=== PATIENT | male | born 1985 | race Caucasian/White ===

== ENCOUNTER 2019-06-25 05:16 | Emergency (ER) | payer SELFPAY ==
[2019-06-25] MEDS ORDERED: predniSONE 20 MG Tab PO ONE (06:00)
--- NOTE | 2019-06-25 06:04 | EDM.PDOC ---
ED HPI GENERAL MEDICAL PROBLEM - General Chief Complaint: Skin Complaint Stated Complaint: RASH Time Seen by Provider: 06/25/19 05:48 Source of Information: Reports: Patient History Limitations: Reports: No Limitations - History of Present Illness INITIAL COMMENTS - FREE TEXT/NARRATIVE: 83-year-old male presents to the ED with diffuse urticaria across his lower abdomen and patches of erythema and scattered urticaria upper arms back and inner thighs. He states he woke with the symptoms yesterday morning. Patient has been on a 3-week fast and has lost around 38 pounds of weight. He is currently taking broth as a supplement and occasional Powerade. Making sure that he gets adequate fluid intake. Smells of ketones on his breath. He has not been ill with any viral infections. He has not been taking any herbal supplements and has taken only yogurt in the last day or 2 with broth. He has some Campos type Powerade which does contain red food dyes which may or may not be the culprit. He has not eaten any nuts. The source of his urticaria remains unclear at this time. Has been taking Benadryl but awoke during the night with severe itching and decided to come to the hospital. He has no sore throat no throat closure and no trouble breathing. Onset: Sudden Onset Date: 06/24/19 (Awoke with urticaria yesterday morning.) Duration: Day(s):, Getting Worse Location: Reports: Generalized Quality: Reports: Other Severity: Severe (Ear pruritus) Improves with: Reports: None Worsens with: Reports: None Context: Reports: Other (Spontaneous occurrence). Denies: Activity, Exercise, Lifting, Sick Contact, Trauma Associated Symptoms: Reports: No Other Symptoms Treatments SCIENTIFIC LINGUIST: Reports: Other (see below) - Related Data Allergies Allergy/AdvReac Type Severity Reaction Status Date / Time No Known Allergies Allergy Verified 06/25/19 05:32 Home Meds: Home Meds predniSONE [Prednisone] 20 mg PO BID #10 tablet 06/25/19 [Rx] Past Medical History - History Comment History Comment: Patient is currently fasting for the last 3 weeks and is volume depleted clinically and ketotic. I cannot be sure that his ketotic state is not contributing to mast cell breakdown in his skin due to weight loss making them much closer to the surface than normal. Also adipose tissue loss may or may not be contributing to development of urticaria. Social & Family History - Living Situation & Occupation Living situation: Reports: Single Occupation: Employed ED ROS GENERAL - Review of Systems Review Of Systems: See Below Constitutional: Reports: Malaise, Fatigue (Not sleeping well due to severe pruritus from the hives). Denies: Fever, Chills HEENT: Reports: No Symptoms Respiratory: Reports: No Symptoms Cardiovascular: Reports: No Symptoms Endocrine: Reports: Fatigue GI/Abdominal: Reports: No Symptoms : Reports: No Symptoms Musculoskeletal: Reports: No Symptoms Skin: Reports: Urticaria (Opened up urticaria generalized but mostly across his abdominal wall) Neurological: Reports: No Symptoms Psychiatric: Reports: No Symptoms Hematologic/Lymphatic: Reports: No Symptoms Immunologic: Reports: No Symptoms ED EXAM, SKIN/RASH Exam: See Below Exam Limited By: No Limitations General Appearance: Alert, WD/WN, Mild Distress Eye Exam: Bilateral Eye: Normal Inspection (There is no periorbital swelling.), PERRL Throat/Mouth: Normal Inspection, Normal Lips, Normal Oropharynx, No Airway Compromise, Other (Uvula and floor the mouth are normal.) Head: Atraumatic, Normocephalic Neck: Normal Inspection, Supple, Non-Tender, Full Range of Motion Respiratory/Chest: No Respiratory Distress, Lungs Clear, Normal Breath Sounds, No Accessory Muscle Use. No: Crackles, Rales, Rhonchi, Wheezing Cardiovascular: Normal Peripheral Pulses, Regular Rate, Rhythm, No Edema, No Gallop, No Murmur, No Rub GI/Abdominal: Normal Bowel Sounds, Soft, Non-Tender, No Organomegaly Extremities: Normal Inspection, Normal Range of Motion, Non-Tender. No: Pedal Edema Neurological: Alert, Oriented, CN II-XII Intact, Normal Cognition, Normal Gait Psychiatric: Normal Affect, Normal Mood Skin: Warm, Dry, Intact, Normal Color, Rash (Tanner rash particularly across his lower abdominal wall blood patches on his upper back inner thighs that are evident as well.), Other (His patches of dry skin from weight loss.) Location, Skin: Generalized Characteristics: Urticarial Course - Vital Signs Last Recorded V/S: Last Vital Signs Temp 36.1 C 06/25/19 05:32 Pulse 85 06/25/19 05:32 Resp 19 06/25/19 05:32 BP 138/89 06/25/19 05:32 Pulse Ox 100 06/25/19 05:32 - Orders/Labs/Meds Meds: Medications Discontinued Medications Generic Name Dose Route Start Last Admin Trade Name Lori PRPaola Reason Stop Dose Admin Prednisone 30 mg 06/25/19 06:00 Prednisone PO 06/25/19 06:01 ONETIME ONE - Radiology Interpretation Free Text/Narrative:: 33-year-old male presents to the ED with acute onset of hives developing yesterday morning upon awakening. It is unclear at this time what the source of his hives are. It is unusual that the patient is fasting and is taking very little carbohydrates and at all. He has been fasting for close to 3 weeks with a 38 pound weight loss. He is taking some broth and he takes some Powerade/ Gatorade on a daily basis. It is questioning whether or not be a allergic reaction to a red food dye in the Powerade or Gatorade. Find nothing else in his diet that would do this. He is not taking any herbal supplements. He has been on no medications. He has not been ill with any viral illnesses in the last month or 2. It is unclear to me whether his ketotic state as he is strongly smelling of ketones could precipitate mast cell breakdown. Weight he will be treated with Benadryl 50 to 75 mg every 6 hours as needed for itching and prednisone starting with 30 mg in the ED today and 20 mg twice daily for the next 4-1/2 days to hopefully bring them under control. Return if the hives return or fail to improve with treatment Departure - Departure Time of Disposition: 06:00 Disposition: Home, Self-Care 01 Condition: Fair Clinical Impression: Urticaria - Discharge Information *PRESCRIPTION DRUG MONITORING PROGRAM REVIEWED*: Not Applicable *COPY OF PRESCRIPTION DRUG MONITORING REPORT IN PATIENT SANDRA: Not Applicable Prescriptions: predniSONE [Prednisone] 20 mg PO BID #10 tablet Instructions: Pruritus, Hives Referrals: PCP,None [Primary Care Provider] - Forms: ED Department Discharge Additional Instructions: Evaluation in the emergency room today in regards to element of urticaria/hives yesterday morning which have persisted since that time. The exact cause of the development of the hives is unclear at the time of examination. You have not been taking any herbal supplements or medications that may have precipitated urticaria. You have not been sick with any viral infections within the last month which often cause up to 50% of hives. Food remains a possibility or food dye remains a possibility as cause of urticaria. Particularly red food dyes and more rarely orange or yellow food dyes can sometimes precipitate hives in certain people. Note aspirin, Motrin and Aleve are also famous for causing hives and sometimes we do not think about them as potential culprit since they are [id number]. Treatment is prednisone 30 mg started in the ED and then to take 20 mg twice daily for the next 5 days. Your next tablet would be due around suppertime tonight. May still use Benadryl 50 to 75 mg every 6 hours as needed for itch but of course this causes drowsiness and one should not be driving a motor vehicle under the influence of histamines. If not markedly improved in 5 days time or the hives come right back after finishing the steroids you need to be seen again. Sepsis Event Note - Evaluation Sepsis Screening Result: No Definite Risk - Focused Exam Vital Signs: Vital Signs Temp Pulse Resp BP Pulse Ox 06/25/19 05:32 36.1 C 85 19 138/89 100 Date Exam was Performed: 06/25/19 Time Exam was Performed: 06:08
== END 2019-06-25 06:15 | disposition home or self-care (01) ==
LOC: JD.ED 05:16
DX: L50.9 Urticaria, unspecified (principal)
CPT/HCPCS: 99282; A9270

== ENCOUNTER 2019-06-28 22:59 | Emergency (ER) | payer SELFPAY ==
--- NOTE | 2019-06-29 00:21 | EDM.PDOC ---
ED HPI GENERAL MEDICAL PROBLEM - General Chief Complaint: Chest Pain Stated Complaint: CHEST PAIN Time Seen by Provider: 06/29/19 00:21 - History of Present Illness INITIAL COMMENTS - FREE TEXT/NARRATIVE: 33-year-old male presents the emergency room with chest pain. This pain started around 530 this evening. It is a pressure left substernal chest. It is not aggravated by deep breathing. The patient denies any heartburn or reflux symptoms. The pain does not get better or worsened with exercise or activity. Patient is currently on a multiple week fast he has been approaching 3 weeks with nothing to eat he has been pushing lots of fluids however. Middle Chest Pain Score (Numeric/FACES): 4 - Related Data Allergies Allergy/AdvReac Type Severity Reaction Status Date / Time No Known Allergies Allergy Verified 06/25/19 05:32 Home Meds: Home Meds predniSONE [Prednisone] 20 mg PO BID 06/28/19 [History] Past Medical History Cardiovascular History: Reports: Hypertension Psychiatric History: Reports: Anxiety, Depression - History Comment History Comment: Patient is currently fasting for the last 3 weeks and is volume depleted clinically and ketotic. I cannot be sure that his ketotic state is not contributing to mast cell breakdown in his skin due to weight loss making them much closer to the surface than normal. Also adipose tissue loss may or may not be contributing to development of urticaria. Social & Family History - Tobacco Use Smoking Status *Q: Former Smoker Years of Tobacco use: 4 Packs/Tins Daily: 0.2 Used Tobacco, but Quit: No - Caffeine Use Caffeine Use: Reports: Coffee, Energy Drinks, Soda, Tea Other Caffeine Use: none for past month - Recreational Drug Use Recreational Drug Use: Yes Recreational Drug Type: Reports: Cocaine Other Recreational Drug Type: none for past 3 yrs - Living Situation & Occupation Living situation: Reports: Single Occupation: Employed ED ROS GENERAL - Review of Systems Review Of Systems: See Below Constitutional: Reports: No Symptoms HEENT: Reports: No Symptoms Respiratory: Reports: No Symptoms Cardiovascular: Reports: Chest Pain. Denies: No Symptoms GI/Abdominal: Reports: No Symptoms : Reports: No Symptoms Musculoskeletal: Reports: No Symptoms Skin: Reports: No Symptoms Neurological: Reports: No Symptoms ED EXAM, GENERAL - Physical Exam Exam: See Below Exam Limited By: No Limitations General Appearance: Alert, No Apparent Distress Head: Atraumatic, Normocephalic Neck: Normal Inspection, Supple, Non-Tender, Full Range of Motion. No: Lymphadenopathy (L), Lymphadenopathy (R) Cardiovascular: Regular Rate, Rhythm, No Edema, No Murmur GI/Abdominal: Normal Bowel Sounds, Soft, Non-Tender Extremities: Normal Inspection, Normal Range of Motion Neurological: Alert, Oriented, Normal Cognition EKG INTERPRETATION EKG Date: 06/29/19 Rhythm: NSR [facility]: LAD-Left [facility] Deviation P-Wave: Present QRS: Other (Inferior Q' waves) ST-T: Normal QT: Normal Comparison: NA - No Prior EKG EKG Interpretation Comments: Borderline EKG, nonacute Course - Vital Signs Last Recorded V/S: Last Vital Signs Temp 35.8 C L 06/28/19 23:25 Pulse 61 06/28/19 23:25 Resp 20 06/28/19 23:25 BP 157/113 H 06/28/19 23:25 Pulse Ox 98 06/28/19 23:25 - Orders/Labs/Meds Orders: Active Orders 24 hr Category Date Time Status EKG Documentation Completion [RC] ASDIRECTED Care 06/28/19 23:50 Active Chest 1V Frontal [CR] Stat Exams 06/28/19 23:39 Taken EKG 12 Lead [EK] Stat Ther 06/28/19 23:49 Ordered Labs: Laboratory Tests 06/29/19 06/29/19 Range/Units 00:40 00:40 WBC 7.27 (4.23-9.07) K/mm3 RBC 4.92 (4.63-6.08) M/mm3 Hgb 15.1 (13.7-17.5) gm/dl Hct 42.7 (40.1-51.0) % MCV 86.8 (79.0-92.2) fl MCH 30.7 (25.7-32.2) pg MCHC 35.4 (32.2-35.5) g/dl RDW Std Deviation 40.4 (35.1-43.9) fL Plt Count 219 (163-337) K/mm3 MPV 10.7 (9.4-12.3) fl Neut % (Auto) 85.8 H (34.0-67.9) % Lymph % (Auto) 9.1 L (21.8-53.1) % [place] % (Auto) 3.9 L (5.3-12.2) % Eos % (Auto) 0 L (0.8-7.0) Baso % (Auto) 0.1 (0.1-1.2) % Neut # (Auto) 6.24 H (1.78-5.38) K/mm3 Lymph # (Auto) 0.66 L (1.32-3.57) K/mm3 [place] # (Auto) 0.28 L (0.30-0.82) K/mm3 Eos # (Auto) 0.00 L (0.04-0.54) K/mm3 Baso # (Auto) 0.01 (0.01-0.08) K/mm3 Manual Slide Review Abnormal smear Sodium 141 (136-145) mEq/L Potassium 3.6 (3.5-5.1) mEq/L Chloride 104 (98-107) mEq/L Carbon Dioxide 26 (21-32) mEq/L Anion Gap 14.6 (5-15) BUN 7 (7-18) mg/dL Creatinine 0.9 (0.7-1.3) mg/dL Est Cr Clr Drug Dosing 133.17 mL/min Estimated GFR (MDRD) > 60 (>60) mL/min BUN/Creatinine Ratio 7.8 L (14-18) Glucose 124 H (74-106) mg/dL Calcium 9.4 (8.5-10.1) mg/dL Total Bilirubin 0.6 (0.2-1.0) mg/dL AST 20 (15-37) U/L ALT 45 (16-63) U/L Alkaline Phosphatase 64 (46-116) U/L Troponin I < 0.017 (0.00-0.056) ng/mL Total Protein 6.8 (6.4-8.2) g/dl Albumin 3.9 (3.4-5.0) g/dl Globulin 2.9 gm/dL Albumin/Globulin Ratio 1.3 (1-2) - Re-Assessments/Exams Free Text/Narrative Re-Assessment/Exam: 06/29/19 03:16 EKG is nonacute opponent negative. I discussed with the patient my concerns about his fasting diet. Departure - Departure Time of Disposition: 03:17 Disposition: Home, Self-Care 01 Clinical Impression: Chest pain Referrals: PCP,None [Primary Care Provider] - Forms: ED Department Discharge Additional Instructions: Return to the emergency room with any questions problems or worsening symptoms. Establish with a local regular healthcare provider and follow-up in the next couple of weeks. Discuss getting a cardiac stress test done if your symptoms persist. Sepsis Event Note - Evaluation Sepsis Screening Result: No Definite Risk - Focused Exam Vital Signs: Vital Signs Temp Pulse Resp BP Pulse Ox 06/28/19 23:25 35.8 C L 61 20 157/113 H 98 Date Exam was Performed: 06/29/19 Time Exam was Performed: 03:12 - My Orders Last 24 Hours: My Active Orders 06/28/19 23:39 Chest 1V Frontal [CR] Stat 06/28/19 23:49 EKG 12 Lead [EK] Stat 06/28/19 23:50 EKG Documentation Completion [RC] ASDIRECTED - Assessment/Plan Last 24 Hours: My Active Orders 06/28/19 23:39 Chest 1V Frontal [CR] Stat 06/28/19 23:49 EKG 12 Lead [EK] Stat 06/28/19 23:50 EKG Documentation Completion [RC] ASDIRECTED
--- NOTE | 2019-06-29 06:23 | CR ---
Chest: Portable view of the chest was obtained. Comparison: No prior chest imaging. Heart size and mediastinum are normal. Lungs are clear with no acute parenchymal change. Bony structures are grossly intact. Impression: 1. Nothing acute is identified on portable chest x-ray. Diagnostic code #1 This report was dictated in Mountain Standard Time
== END 2019-06-29 03:28 | disposition home or self-care (01) ==
LOC: JD.ED 22:59
DX: R07.2 Precordial pain (principal); I10 Essential (primary) hypertension; Z87.891 Personal history of nicotine dependence
CPT/HCPCS: 36415; 71045; 71045-26; 80053; 84484; 85025; 93005; 93010; 99283; 99285-25

== ENCOUNTER 2020-03-21 23:18 | Emergency (ER) | payer OTHER ==
--- NOTE | 2020-03-22 00:24 | EDM.PDOC ---
ED HPI GENERAL MEDICAL PROBLEM - General Chief Complaint: Cardiovascular Problem Stated Complaint: FEELING FAINT, DIZZY Time Seen by Provider: 03/21/20 23:38 Source of Information: Reports: Patient History Limitations: Reports: No Limitations - History of Present Illness INITIAL COMMENTS - FREE TEXT/NARRATIVE: This is a 34-year-old male. He had a panic attack tonight where he felt lightheaded dizzy maybe nauseated heart racing and he comes to the ER. By the time he got to the ER he was fine. He says he has has a history of this and he also has a difficult family history of medical problems that he is concerned about. He used to be on medications for these panic attacks but since he moved he is not continued them. He has been on Prozac and Ativan in the past. He us ed to be under a very high stress job seem to cause the panic attacks to occur frequently but now that he is not under a lot of stress they still occur but much less frequently. He supposedly has been given a family doctor but he has not really followed up or seeing this doctor for evaluation of his anxiety and his other medical concerns. - Related Data Allergies Allergy/AdvReac Type Severity Reaction Status Date / Time No Known Allergies Allergy Verified 03/21/20 23:32 Home Meds: Home Meds . [No Known Home Meds] 03/21/20 [History] Past Medical History - Past Health History Medical/Surgical History: Denies Medical/Surgical History Cardiovascular History: Reports: Hypertension Psychiatric History: Reports: Anxiety, Depression, Other (See Below) Other Psychiatric History: hypochondriac - History Comment History Comment: Patient is currently fasting for the last 3 weeks and is volume depleted clinically and ketotic. I cannot be sure that his ketotic state is not contributing to mast cell breakdown in his skin due to weight loss making them much closer to the surface than normal. Also adipose tissue loss may or may not be contributing to development of urticaria. Social & Family History - Family History Family Medical History: No Pertinent Family History - Tobacco Use Tobacco Use Status *Q: Current Every Day Tobacco User Years of Tobacco use: 5 Packs/Tins Daily: 0.6 Second Hand Smoke Exposure: No - Caffeine Use Caffeine Use: Reports: Coffee, Energy Drinks, Soda, Tea Other Caffeine Use: none for past month - Alcohol Use Days Per Week of Alcohol Use: 1 Number of Drinks Per Day: 2 Total Drinks Per Week: 2 - Recreational Drug Use Recreational Drug Use: No - Living Situation & Occupation Living situation: Reports: Single Occupation: Employed ED ROS GENERAL - Review of Systems Review Of Systems: See Below Constitutional: Denies: Fever, Chills HEENT: Reports: No Symptoms Respiratory: Denies: Shortness of Breath, Cough Cardiovascular: Reports: Lightheadedness. Denies: Chest Pain Endocrine: Reports: No Symptoms GI/Abdominal: Reports: Nausea : Reports: No Symptoms Musculoskeletal: Reports: No Symptoms Skin: Reports: No Symptoms Neurological: Reports: Dizziness. Denies: Headache, Syncope Psychiatric: Reports: Anxiety Hematologic/Lymphatic: Reports: No Symptoms ED EXAM, GENERAL - Physical Exam Exam: See Below Exam Limited By: No Limitations General Appearance: Alert, WD/WN, No Apparent Distress Eye Exam: Bilateral Eye: Normal Inspection Ears: Normal External Exam Throat/Mouth: Normal Voice, No Airway Compromise Head: Normocephalic Neck: Supple Respiratory/Chest: No Respiratory Distress, Lungs Clear, Normal Breath Sounds Cardiovascular: Regular Rate, Rhythm, No Murmur GI/Abdominal: Other (He denies any abdominal symptoms) Back Exam: Normal Inspection, Full Range of Motion Extremities: Normal Inspection, Normal Range of Motion Neurological: Alert, Oriented Psychiatric: Normal Affect, Normal Mood Skin Exam: Warm, Dry Course - Vital Signs Last Recorded V/S: Last Vital Signs Temp 96.4 F L 03/21/20 23:26 Pulse 91 03/21/20 23:26 Resp 18 03/21/20 23:26 BP 152/94 H 03/21/20 23:26 Pulse Ox 96 03/21/20 23:26 Departure - Departure Time of Disposition: 00:23 Disposition: Home, Self-Care 01 Condition: Good Clinical Impression: Panic attack Anxiety disorder Qualifiers: Anxiety disorder type: unspecified anxiety disorder Qualified Code(s): F41.9 - Anxiety disorder, unspecified Instructions: Panic Attack Referrals: PCP,None [Primary Care Provider] - Additional Instructions: Please follow-up with your family physician to get back on medications to help with your anxiety, there is many new medications now that worked very well as far as stopping panic attacks, return to the ER if needed. Sepsis Event Note (ED) - Evaluation Sepsis Screening Result: No Definite Risk - Focused Exam Vital Signs: Vital Signs Temp Pulse Resp BP Pulse Ox 03/21/20 23:26 96.4 F L 91 18 152/94 H 96
== END 2020-03-22 00:31 | disposition home or self-care (01) ==
LOC: JD.ED 23:18
DX: F41.0 Panic disorder [episodic paroxysmal anxiety] (principal); I10 Essential (primary) hypertension; F17.210 Nicotine dependence, cigarettes, uncomplicated
CPT/HCPCS: 99283